=== PATIENT | female | born 1965 | race Caucasian/White ===

== ENCOUNTER 2020-04-19 22:19 | Emergency (ER) | payer SELFPAY ==
--- NOTE | 2020-04-19 22:50 | EDM.PDOC ---
ED HPI GENERAL MEDICAL PROBLEM - General Chief Complaint: Genitourinary Problem Stated Complaint: BLADDER PRESSURE/PASSING BLOOD Time Seen by Provider: 04/19/20 22:31 Source of Information: Reports: Patient History Limitations: Reports: No Limitations - History of Present Illness INITIAL COMMENTS - FREE TEXT/NARRATIVE: Mrs. Atkinson is a very pleasant 54-year-old woman with no chronic medical problems, on no medications, who now presents to the ED after developing urinary urgency without dysuria this afternoon. She then developed the sensation of lower abdominal pressure after voiding, along with gross hematuria, around 20:00 this evening. No associated fever, nausea, vomiting, abdominal pain, or flank pain. No prior similar symptoms, although the patient states that she has never previously had a UTI. The patient did not take any [id number] or home remedies prior to coming to the ED. Here in the ED, the patient is found to be hemodynamically stable, afebrile, saturating 99% on room air. Prior to this afternoon, the patient denies having a recent fever, chills, sore throat, ear pain, nasal or sinus congestion, cough, dyspnea, chest pain, palpitations, nausea, vomiting, constipation, diarrhea, abdominal pain, urinary symptoms, recent weight gain or weight loss, recent bloody bowel movements or black bowel movements, recent joint aches, headaches, or rashes. The patient's women's health provider is Therese Katz NP. She has not received an influenza vaccine this season, and declined [facility]. Bladder Pain Score (Numeric/FACES): 2 - Related Data Allergies Allergy/AdvReac Type Severity Reaction Status Date / Time meperidine [From Demerol] Allergy Severe Itching Verified 04/19/20 22:26 Home Meds: Home Meds nitrofurantoin macrocrystaL [Nitrofurantoin] 1 cap PO Q12H #13 capsule 04/19/20 [Rx] Past Medical History - Past Surgical History HEENT Surgical History: Reports: Oral Surgery (dental extractions) Female Surgical History: Reports: D&C (x 1) Musculoskeletal Surgical History: Reports: Other (See Below) (Bilateral bunionectomies) Social & Family History - Tobacco Use Tobacco Use Status *Q: Never Tobacco User Second Hand Smoke Exposure: No - Alcohol Use Alcohol Use History: Yes Alcohol Use Frequency: Rarely - Recreational Drug Use Recreational Drug Use: No - Living Situation & Occupation Living situation: Reports: , with Spouse Occupation: Employed (Accounting) ED ROS GENERAL - Review of Systems Review Of Systems: Comprehensive ROS is negative, except as noted in HPI. ED EXAM, RENAL/ - Physical Exam Exam: See Below Exam Limited By: No Limitations General Appearance: Alert, WD/WN, No Apparent Distress Eye Exam: Bilateral Eye: EOMI, Normal Inspection Ears: Normal External Exam, Hearing Grossly Normal Nose: Normal Inspection Throat/Mouth: Normal Inspection, Normal Lips, Normal Voice, No Airway Compromise Head: Atraumatic, Normocephalic Neck: Normal Inspection, Full Range of Motion Respiratory/Chest: No Respiratory Distress, Lungs Clear, Normal Breath Sounds, No Accessory Muscle Use Cardiovascular: Normal Peripheral Pulses, Regular Rate, Rhythm, No Edema, No Gallop, No JVD, No Murmur, No Rub GI/Abdominal: Normal Bowel Sounds, Soft, Non-Tender, No Organomegaly, No Distention, No Abnormal Bruit, No Mass, Other (Palpation of the suprapubic region induces the sensation of the need to urinate, but the patient denies tenderness, per se. Nontender elsewhere.) Back Exam: Normal Inspection, Full Range of Motion. No: CVA Tenderness (L), CVA Tenderness (R) Extremities: Normal Inspection, Normal Range of Motion, No Pedal Edema, Normal Capillary Refill Neurological: Alert, Oriented, Normal Cognition, No Motor/Sensory Deficits Psychiatric: Normal Affect Skin Exam: Warm, Dry, Intact, Normal Color, No Rash Course - Vital Signs Last Recorded V/S: Last Vital Signs Temp 36.1 C 04/19/20 22:24 Pulse 86 04/19/20 22:24 Resp 16 04/19/20 22:24 BP 133/74 04/19/20 22:24 Pulse Ox 99 04/19/20 22:24 - Orders/Labs/Meds Orders: Active Orders 24 hr Category Date Time Status UA W/MICROSCOPIC [URIN] Stat Lab 04/19/20 22:33 Results Labs: Laboratory Tests 04/19/20 Range/Units 22:33 Urine Color [place] H (Yellow) Urine Appearance Slt cloudy H (Clear) Urine pH 7.0 (5.0-8.0) Ur Specific [place] 1.015 (1.005-1.030) Urine Protein 2+ H (Negative) Urine Glucose (UA) Negative (Negative) Urine Ketones Negative (Negative) Urine Occult Blood 3+ H (Negative) Urine Nitrite Negative (Negative) Urine Bilirubin Negative (Negative) Urine Urobilinogen 0.2 (0.2-1.0) Ur Leukocyte Esterase 2+ H (Negative) - Re-Assessments/Exams Free Text/Narrative Re-Assessment/Exam: 04/19/20 22:45 As above, the patient developed urinary urgency without dysuria this afternoon, then the sensation of lower abdominal pressure after voiding, along with gross hematuria around 20:00 this evening. No recent fever, nausea, vomiting, or flank pain. She is afebrile. On examination, palpation of her suprapubic region induces the sensation of the need to urinate, but she denies tenderness, per se. No CVA tenderness. A urine sample already collected is slightly cloudy red in appearance. Her presentation is most consistent with a UTI, but with no flank or abdominal pain, fever, nausea, or vomiting, her presentation is not consistent with a ureterolith. A urinalysis has been ordered. 04/19/20 22:57 The patient's urinalysis is remarkable for 3+ occult blood with 30-40 RBCs, 2+ leukocyte esterase with 40-50 WBCs, nitrate negative with moderate bacteria, and 0-5 squamous epithelial cells. The patient's urinalysis is consistent with a UTI. I will order a urine culture, and start the patient on nitrofurantoin and phenazopyridine. Because this is the patient's first UTI, she will require a 7-day course of nitrofuran toin, instead of the usual 5. Departure - Departure Time of Disposition: 23:08 Disposition: Home, Self-Care 01 Condition: Good Clinical Impression: UTI (urinary tract infection) - Discharge Information *PRESCRIPTION DRUG MONITORING PROGRAM REVIEWED*: Not Applicable *COPY OF PRESCRIPTION DRUG MONITORING REPORT IN PATIENT ANA CRISTINA: Not Applicable Referrals: Therese Katz NP [Primary Care Provider] - Additional Instructions: You were seen in the emergency room after developing the need to urinate often, this afternoon, followed by lower abdominal pressure after urinating, with visibly bloody urine, this evening. Work-up in the ER included a urinalysis, which confirmed that you have a urinary tract infection. A sample of your urine has been sent for culture. You have been started on the antibiotic nitrofurantoin, and the bladder-pain reliever phenazopyridine (Azo). A prescription for nitrofurantoin has been sent to the [facility], located at [address] [place] [address]. Take 1 tablet of nitrofurantoin every 12 hours, starting tomorrow morning, 04/20/2020, as prescribed. Finish the entire prescription unless told otherwise by your PCP. Azo is available [id number]. You may take 3 tablets a day for 2 days, for a total of 6 tablets. Remember that you were given 1 tablet in the ER. Be aware that Azo will turn your urine orange, which is normal. Stay adequately hydrated. It does not really matter what type of fluid you drink. Follow-up with the office of Therese Katz NP, this coming 04/22/2020, to check on your urine culture results, to make sure that you are on the correct antibiotic. If any other problems, please do not hesitate to return to the ER. Sepsis Event Note (ED) - Evaluation Sepsis Screening Result: No Definite Risk - Focused Exam Vital Signs: Vital Signs Temp Pulse Resp BP Pulse Ox 04/19/20 22:24 36.1 C 86 16 133/74 99 - My Orders Last 24 Hours: My Active Orders 04/19/20 22:33 UA W/MICROSCOPIC [URIN] Stat - Assessment/Plan Last 24 Hours: My Active Orders 04/19/20 22:33 UA W/MICROSCOPIC [URIN] Stat
[2020-04-19] MEDS ORDERED: Nitrofurantoin Monohydrate/Macrocrystalline 100 MG Cap PO STA (22:58)
[2020-04-19] MEDS ORDERED: Phenazopyridine 95 MG Tab PO STA (23:07)
== END 2020-04-19 23:21 | disposition home or self-care (01) ==
LOC: JD.ED 22:19
DX: N39.0 Urinary tract infection, site not specified (principal); R31.0 Gross hematuria; Z88.5 Allergy status to narcotic agent
CPT/HCPCS: 81001; 87086; 99283; A9270